=== PATIENT | male | born 1995 | race Caucasian/White ===

== ENCOUNTER 2018-07-07 20:41 | Inpatient (IN) | payer SELFPAY ==
[~2018-07-07] VITALS: Ht 190.5 cm; Wt 115.2 kg
[2018-07-07] MEDS ORDERED: DIPHENHYDRAMINE HCL INJ 50 MG/ML VIAL ONE (21:08)
[2018-07-07] MEDS ORDERED: SODIUM CHLORIDE 0.9% 1000ML 1,000 ML ONE (21:08)
[2018-07-07] MEDS ORDERED: SODIUM CHLORIDE 0.9% 1000ML 1,000 ML IV STA (21:11)
[2018-07-07] MEDS ORDERED: DIPHENHYDRAMINE HCL INJ 50 MG/ML VIAL IV ONE (21:15)
[2018-07-07] MEDS ORDERED: SODIUM CHLORIDE 0.9% 1000ML 1,000 ML IV ONE (21:15)
[2018-07-07 21:19] LABS: BASOPHILS % 0.3 % (0.0-1.0); EOSINOPHILS # (AUTO) 0.3 (0.0-0.4); EOSINOPHILS % 4.7 % (0.0-6.0); HEMATOCRIT 41.5 % (38.2-49.6); HEMOGLOBIN 14.7 g/dL (14.0-18.0); LYMPHOCYTES # (AUTO) 2.1 (1.0-3.2); LYMPHOCYTES % 31.4 % (18.0-39.1); MEAN CORPUSCULAR HEMOGLOBIN 32.5 pg (28-32); MEAN CORPUSCULAR HGB CONC 35.4 g/dL (31-35); MEAN CORPUSCULAR VOLUME 91.6 fL (81-99); MONOCYTES # (AUTO) 0.6 (0.2-0.8); MONOCYTES % 8.5 % (4.4-11.3); NEUTROPHILS # (AUTO) 3.6 (2.1-6.9); NEUTROPHILS % 54.9 % (38.7-80.0); PLATELET COUNT 204 x10e3/uL (140-360); RED BLOOD COUNT 4.53 x10e6/uL (4.3-5.7)
[2018-07-07 21:25] LABS: INR 0.95; PARTIAL THROMBOPLASTIN TIME 31.4 seconds (23.8-35.5); PROTHROMBIN TIME 13.5 seconds (11.9-14.5)
--- NOTE | 2018-07-07 21:32 | NUR ---
pt lethargic and unable to follow instructions. ordered to straight cath for ua. straight cath performed using sterile technique. catheter inserted s difficulty. small amount of blood return noted. catheter removed. md informed. lomeli catheter ordered. 16fr lomeli catheter inserted using sterile technique. catheter inserted s difficulty. valdez colored urine return c small clot noted on insertion. 100cc urine noted. urine noted returning to clear yellow at this time.
[2018-07-07 21:34] LABS: ALANINE AMINOTRANSFERASE 32 IU/L (0-55); ALBUMIN 3.7 g/dL (3.5-5.0); ALBUMIN/GLOBULIN RATIO 1.2 (0.8-2.0); ALKALINE PHOSPHATASE 107 IU/L (40-150); ANION GAP 12.3 mmol/L (8-16); BLOOD UREA NITROGEN 7 mg/dL (7-26); BUN/CREATININE RATIO 7 (6-25); CALCIUM 9.5 mg/dL (8.4-10.2); CARBON DIOXIDE 27 mmol/L (22-29); CHLORIDE 100 mmol/L (98-107); CREATINE KINASE 405 IU/L (30-200); CREATININE, SERUM 1.07 mg/dL (0.72-1.25); EST GLOMERULAR FILTRATION RATE > 60 ML/MIN (60-); GLUCOSE 116 mg/dL (74-118); MAGNESIUM 2.1 MG/DL (1.3-2.1); POTASSIUM 3.3 mmol/L (3.5-5.1); SODIUM 136 mmol/L (136-145)
[2018-07-07] MEDS ORDERED: BENZTROPINE MESYLATE 1 MG/ML ONE (21:40)
[2018-07-07 21:43] LABS: ACETAMINOPHEN < 3 ug/mL (10-30); SALICYLATE < 5.0 mg/dL (0-30)
[2018-07-07] MEDS ORDERED: BENZTROPINE MESYLATE 1 MG/ML IV ONE (21:45)
[2018-07-07] MEDS ORDERED: DIPHENHYDRAMINE50 M1 PO (21:46)
[2018-07-07] MEDS ORDERED: HALOPERIDOL1 MG PO (21:46)
[2018-07-07 21:53] LABS: AMPHETAMINES SCREEN,URINE NEGATIVE (NEGATIVE); PHENCYCLIDINE SCREEN,URINE NEGATIVE (NEGATIVE)
[2018-07-07 21:54] LABS: BENZODIAZEPINES SCREEN,URINE POSITIVE (NEGATIVE); CLARITY,URINE CLEAR (CLEAR); COLOR,URINE YELLOW (YELLOW); LEUKOCYTE ESTERASE ,URINE NEGATIVE (NEGATIVE); NITRITE,URINE NEGATIVE (NEGATIVE); PROTEIN,URINE DIPSTICK NEGATIVE (NEGATIVE)
[2018-07-07 21:55] LABS: BACTERIA,URINE FEW /HPF; BILIRUBIN,URINE NEGATIVE (NEGATIVE); EPITHELIAL CELLS,URINE FEW /LPF; KETONES,URINE NEGATIVE (NEGATIVE); RBC,URINE 21-50 /HPF (0-5); URINE UROBILINOGEN 0.2 mg/dL (0.2 - 1); WBC,URINE (MAN) 0-5 /HPF (0-5)
--- NOTE | 2018-07-07 22:09 | Diagnostic Imaging Report ---
EXAM: CHEST SINGLE (PORTABLE), AP 1 view INDICATION: Altered mental status COMPARISON: None FINDINGS: LINES/TUBES: None LUNGS: No consolidations or edema. PLEURA: No effusions or pneumothorax. HEART AND MEDIASTINUM: Normal size and contour. BONES AND SOFT TISSUES: No acute findings. IMPRESSION: No acute thoracic abnormality. Signed by: Dr. Amy Gross M.D. on 07/07/2018 10:06 PM
--- NOTE | 2018-07-07 22:18 | Diagnostic Imaging Report ---
EXAMINATION: Head CT without contrast. HISTORY:Altered mental status. COMPARISON:None. TECHNIQUE: Multidetector axial images were obtained from the foramen magnum to the vertex without contrast. The images were reconstructed using brain and bone algorithms. Thin section brain images were reformatted into coronal and sagittal planes. Dose modulation, iterative reconstruction, and/or weight based adjustment of the mA/kV was utilized to reduce the radiation dose to as low as reasonably achievable. Intravenous contrast: None IMAGE QUALITY: Suboptimal evaluation due to motion-related streak artifacts. FINDINGS: Skull/scalp: No lytic or blastic. lesions. No surgical changes. Parenchyma: No abnormal density. No acute hemorrhage, mass or acute major vascular territorial infarct. Arteries: No density suggestive of thrombosis. Dural sinuses: No abnormal density suggestive of thrombosis. Ventricles: No hydrocephalus or displacement. Extra-axial spaces: No abnormal density. Brain volume: Normal for age. Craniocervical junction: No mass, Chiari malformation, or basilar invagination. Sella: No mass. Paranasal/mastoid sinuses: Imaged portions unremarkable. IMPRESSION: Suboptimal evaluation due to motion artifact, despite the limitation no gross acute intracranial abnormality. Signed by: Dr. Yina Pérez M.D. on 07/07/2018 10:15 PM
[2018-07-08] VITALS (20 sets, daily range): BP systolic 15–150; BP diastolic 34–108
[2018-07-08] MEDS ORDERED: SODIUM CHLORIDE 0.9% 1000ML 1,000 ML IV SCH ×2 (00:45→09:00)
[2018-07-08] MEDS ORDERED: SODIUM CHLORIDE 0.9% 1000ML 1,000 ML ONE (00:46)
[2018-07-08] MEDS ORDERED: SODIUM CHLORIDE 0.9% 1000ML 1,000 ML IV ONE (01:00)
--- NOTE | 2018-07-08 02:15 | Diagnostic Imaging Report ---
EXAM: CT ABDOMEN AND PELVIS without IV CONTRAST INDICATION: Patient altered, hematuria after UA COMPARISON: None TECHNIQUE: The abdomen and pelvis were scanned using a multidetector helical scanner. Coronal and sagittal reformations were obtained. Dose modulation, iterative reconstruction, and/or weight based adjustment of the mA/kV was utilized to reduce the radiation dose to as low as reasonably achievable. Renal stone protocol performed. IV Contrast: None Oral Contrast: None CTDIvol has been reviewed. It is below the limits set by the Radiation Protocol Committee (RPC). FINDINGS: LOWER THORAX: No consolidations LIVER: No masses BILIARY: Normal gallbladder. No ductal dilation. SPLEEN: No masses PANCREAS: No masses ADRENALS: No nodules RIGHT KIDNEY: No nephroureterolithiasis or hydronephrosis. LEFT KIDNEY: No nephroureterolithiasis or hydronephrosis. GI TRACT: No wall thickening or obstruction. Normal appendix. VESSELS: Normal PERITONEUM/RETROPERITONEUM: No free air or fluid LYMPH NODES: No lymphadenopathy REPRODUCTIVE ORGANS: Normal BLADDER: Partially decompressed by Vallejo catheter. SOFT TISSUES: Normal BONES: No suspicious bone lesions. IMPRESSION: Normal CT of the abdomen and pelvis. Signed by: Dr. Amy Gross M.D. on 07/08/2018 2:11 AM
[2018-07-08] MEDS ORDERED: KCL 20MEQ/.9 SOD CHL 1,000 ML IV ONE (02:30)
[2018-07-08] MEDS ORDERED: ONDANSETRON HCL INJ 2 MG/ML VIAL IV PRN (02:30)
--- OUTSIDE RECORDS SUMMARY | 2018-07-08 02:37 | XMS REPORT ---
Author Author [facility] Address Unknown Phone Unavailable Care Team Providers Care Transport Technician Name Role Phone Allegra JEAN Unavailable Unavailable Problems This patient has no known problems. Allergies, Adverse Reactions, Alerts This patient has no known allergies or adverse reactions. Medications This patient has no known medications. Results Test Description Test Time Test Comments Text Results Atomic Results Result Comments CT ABDOMEN/PELVIS WO 2018-07-08 02:08:00 [place] [id number] Patient Name: RO ESTEBAN MR #: [id number] : 1995 Age/Sex: 23/M Req #: [id number] Adm Physician: Ordered by: MICHAEL JEAN MD Report #: [id number] Location: ER Room/Bed: Procedure: [id number] CT/CT ABDOMEN/PELVIS WO Exam Date: Exam Time: REPORT STATUS: Signed EXAM: CT ABDOMEN AND PELVIS without IV CONTRAST INDICATION: Patient altered, hematuria after UA COMPARISON: None TECHNIQUE: The abdomen and pelvis were scanned using a multidetector helical scanner. Coronal and sagittal reformations were obtained. Dose modulation, iterative reconstruction, and/or weight based adjustment of the mA/kV was utilized to reduce the radiation dose to as low as reasonably achievable. Renal stone protocol performed. IV Contrast: None Oral Contrast: None CTDIvol has been reviewed. It is below the limits set by the Radiation Protocol Committee (RPC). FINDINGS: LOWER THORAX: No consolidations LIVER: No masses BILIARY: Normal gallbladder. No ductal dilation. SPLEEN: No masses PANCREAS: No masses ADRENALS: No nodules RIGHT KIDNEY: No nephroureterolithiasis or hydronephrosis. LEFT KIDNEY: No nephroureterolithiasis or hydronephrosis. GI TRACT: No wall thickening or obstruction. Normal appendix. VESSELS: Normal PERITONEUM/RETROPERITONEUM: No free air or fluid LYMPH NODES: No lymphadenopathy REPRODUCTIVE ORGANS: Normal BLADDER: Partially decompressed by Vallejo catheter. SOFT TISSUES: Normal BONES: No suspicious bone lesions. IMPRESSION: Normal CT of the abdomen and pelvis. Signed by: Dr. Rachel Gross M.D. on 07/08/2018 2:11 AM Dictated By: RACHEL GROSS MD 0 Transcribed By: GALEN on 07/08/18210 COPY TO: MICHAEL JEAN MD CT BRAIN WO 2018-07-07 22:08:00 [place] [address] Patient Name: RO ESTEBAN MR #: [id number] : 1995 Age/Sex: 23/M Req #: [id number] Adm Physician: Ordered by: MICHAEL JEAN MD Report #: [id number] Location: ER Room/Bed: Procedure: [id number] CT/CT BRAIN WO Exam Date: 07/07/18 Exam Time: 2149 REPORT STATUS: Signed EXAMINATION: Head CT without contrast. HISTORY:Altered mental status. COMPARISON:None. TECHNIQUE: Multidetector axial images were obtained from the foramen magnum to the vertex without contrast. The images were reconstructed using brain and bone algorithms. Thin section brain images were reformatted into coronal and sagittal planes. Dose modulation, iterative reconstruction, and/or weight based adjustment of the mA/kV was utilized to reduce the radiation dose to as low as reasonably achievable. Intravenous contrast: None IMAGE QUALITY: Suboptimal evaluation due to motion-related streak artifacts. FINDINGS: Skull/s calp: No lytic or blastic. lesions. No surgical changes. Parenchyma: No abnormal density. No acute hemorrhage, mass or acute major vascular territorial infarct. Arteries: No density suggestive of thrombosis. Dural sinuses: No abnormal density suggestive of thrombosis. Ventricles: No hydrocephalus or displacement. Extra-axial spaces: No abnormal density. Brain volume: Normal for age. Craniocervical junction: No mass, Chiari malformation, or basilar invagination. Sella: No mass. Paranasal/mastoid sinuses: Imaged portions unremarkable. IMPRESSION: Suboptimal evaluation due to motion artifact, despite the limitation no gross acute intracranial abnormality. Signed by: Dr. Yina Pérez M.D. on 07/07/2018 10:15 PM Dictated By: YINA PÉREZ MD 14 Transcribed By: GALEN on 07/07/182214 COPY TO: MICHAEL JEAN MD CHEST SINGLE (PORTABLE) 2018-07-07 22:06:00 [place] [address] Patient Name: RO ESTEBAN MR #: [id number] : 1995 Age/Sex: 23/M Req #: [id number] Adm Physician: Ordered by: MICHAEL JEAN MD Report #: [id number] Location: ER Room/Bed: Procedure: [id number] DX/CHEST SINGLE (PORTABLE) Exam Date: 07/07/18 Exam Time: 2199 REPORT STATUS: Signed EXAM: CHEST SINGLE (PORTABLE), AP 1 view INDICATION: Altered mental status COMPARISON: None FINDINGS: LINES/TUBES: None LUNGS: No consolidations or edema. PLEURA: No effusions or pneumothorax. HEART AND MEDIASTINUM: Normal size and contour. BONES AND SOFT TISSUES: No acute findings. IMPRESSION: No acute thoracic abnormality. Signed by: Dr. Rachel Gross M.D. on 07/07/2018 10:06 PM Dictated By: RACHEL GROSS MD 05 Transcribed By: GALEN on 07/07/182205 COPY TO: MICHAEL JEAN MD
--- NOTE | 2018-07-08 07:00 | NUR ---
Bedside report from ANDREW Win. Patient right side lying; continual word salad, but ceases and answers simple questions appropriately, follows commands. Continual monitor to ensure safety.
[2018-07-08 08:03] LABS: CREATINE KINASE 249 IU/L (30-200)
--- NOTE | 2018-07-08 10:06 | NUR ---
Paged Dr Joyner; awaiting call back.
[2018-07-08] MEDS: RISPERIDONE 1 MG TAB PO SCH ×2 (11:45→21:39)
[2018-07-08] MEDS ORDERED: LORAZEPAM INJ 2 MG/ML VIAL IV PRN (11:45)
[2018-07-08] MEDS ORDERED: ZIPRASIDONE 20 MG VIAL IM PRN (11:45)
[2018-07-08 12:33] LABS: BILIRUBIN,URINE NEGATIVE (NEGATIVE); CLARITY,URINE SL CLOUDY (CLEAR); COLOR,URINE YELLOW (YELLOW); KETONES,URINE NEGATIVE (NEGATIVE); LEUKOCYTE ESTERASE ,URINE NEGATIVE (NEGATIVE); NITRITE,URINE NEGATIVE (NEGATIVE); PROTEIN,URINE DIPSTICK NEGATIVE (NEGATIVE); URINE UROBILINOGEN 0.2 mg/dL (0.2 - 1)
[2018-07-08 12:38] LABS: ANION GAP 14.1 mmol/L (8-16); BLOOD UREA NITROGEN 5 mg/dL (7-26); BUN/CREATININE RATIO 6 (6-25); CARBON DIOXIDE 19 mmol/L (22-29); CHLORIDE 109 mmol/L (98-107); CREATININE, SERUM 0.88 mg/dL (0.72-1.25); EST GLOMERULAR FILTRATION RATE > 60 ML/MIN (60-); GLUCOSE 93 mg/dL (74-118); POTASSIUM 4.1 mmol/L (3.5-5.1); SODIUM 138 mmol/L (136-145)
[2018-07-08 12:55] LABS: BACTERIA,URINE RARE /HPF; EPITHELIAL CELLS,URINE RARE /LPF; WBC,URINE (MAN) 0-5 /HPF (0-5)
[2018-07-08 13:13] LABS: CREATINE KINASE 231 IU/L (30-200)
--- NOTE | 2018-07-08 13:18 | History and Physical ---
The patient has no PCP. CHIEF COMPLAINT: Altered mental status and acute psychosis. HISTORY OF PRESENT ILLNESS: Mr. Zapata is a 23-year-old gentleman who has some psych history. Apparently approximately a year ago, the patient had an acute psychotic episode that occurred after smoking marijuana that was laced with Collins and PCP. That resolved, and the patient has been okay since then until recently. Two weeks ago, while the patient's family was in the middle of moving, he abruptly had another psychotic break where he was found running down the street yelling and screaming. The police picked him up and [facility]. He was bailed out by his mom the next day and taken to [facility], the [facility] [place]. They evaluated him and kept him for 48 hours, medicated him with benzodiazepine and released him. That was a couple of days ago. Patient has remained acutely psychotic with word salad verbiage, although he does occasionally answer direct questions appropriately. He is just babbling and mumbling constantly. The patient was diagnosed as bipolar while he was in [facility]. In reviewing his history with his family, certainly his behavior in the past would be consistent with bipolar disorder and at this time with a psychotic episode. REVIEW OF SYSTEMS: Unobtainable as the patient does not answer most questions. PAST MEDICAL HISTORY: Negative for diabetes or hypertension. He has had no surgery. Again, he has had a psych history, possibly bipolar diagnosis with a previous episode of acute psychosis. FAMILY HISTORY: His mother had seizures. Otherwise unremarkable. SOCIAL HISTORY: The patient is . Tajik is his primary language. He smokes marijuana, but he does not smoke cigarettes. He does not drink. He has used illegal drugs but has been generally independently functioning. PHYSICAL EXAMINATION PSYCHIATRIC: He is awake and alert. He is disoriented and confused, babbling speech that makes no sense, although, again, he does answer occasional questions when put directly. CONSTITUTIONAL: He has a normal body habitus. He is in no acute distress. VITAL SIGNS: Blood pressure 149/79. Pulse 53 and regular. Respiratory rate 16. O2 sat 100% on room air. Temperature 98.1. HEENT: Head is atraumatic. Eyes are anicteric with clear conjunctivae. Ears and nares are without erythema or discharge. Oropharynx is clear. NECK: Supple with no mass or thyromegaly. LYMPHATIC SYSTEM: He has no palpable cervical, axillary or inguinal adenopathy. CARDIOVASCULAR: His heart has regular rate and rhythm without murmur or extra heart sound. He is somewhat bradycardic but asymptomatic. He has no carotid bruit. He has no peripheral edema. He has palpable dorsal pedal pulses. RESPIRATORY: Lungs are clear to auscultation and percussion with normal respiratory effort. GASTROINTESTINAL: Abdomen is soft without organomegaly, masses or tenderness. He has normal bowel sounds present. CUTANEOUS: His skin is warm and dry to touch with no rash or skin breakdown. MUSCULOSKELETAL: His joints are in normal alignment without erythema or swelling. He has no calf tenderness. NEUROLOGIC: Exam is nonfocal other than the acute psychosis. He has no motor or sensory deficits. DIAGNOSTIC STUDIES: Chest x-ray shows no acute disease. CT scan of the abdomen and pelvis also no acute disease. CT scan of brain also no acute disease. His UDS is positive for benzodiazepines. His UA has 20 to 50 red cells; however, apparently the placement of the Vallejo catheter was somewhat traumatic. His urine appears clear now. Will be sending another UA. His troponin is negative x2. His chemistry profile initially with potassium of 3.3. Otherwise, the electrolytes are normal. CO2 is 27. Creatinine 1.07. BUN 7 for a normal GFR. Calcium 9.5. CBC shows a white count 6.5 with a normal differential; hemoglobin 14.7; hematocrit 41.5; platelet count 204,000. His transaminases, bilirubin and alk phos are all normal. His coags are normal. ASSESSMENT AND PLAN 1. Acute psychosis. The patient will be started on scheduled Risperdal 2 mg q.12 h. as well as p.r.n. IM Geodon and IV Ativan for psychosis and agitation. 2. Bipolar disorder currently with acute psychosis. Again, plan is as noted above. 3. For prophylaxis, the patient will be on Pepcid 20 b.i.d. a.c. Also for the psychosis, the MAT team has been called to evaluate the patient for inpatient psychiatric care. Job#: [id number]
--- NOTE | 2018-07-08 16:19 | NUR ---
MAT team repRebecca, completed assessment and patient transfer to [facility] pending, awaiting bed. Patient is on waiting list and MAT call center will contact [facility] once a bed is available.
[2018-07-08] MEDS: FAMOTIDINE 20 MG TAB PO SCH (17:15)
--- NOTE | 2018-07-08 19:00 | NUR ---
Bedside report received from Ciara Medellin RN. Pt received resting in bed with eyes closed, awakened easily to verbal command. OX3. Pt reports no pain or discomfort at this time. No signs of distress noted.
--- NOTE | 2018-07-08 23:00 | NUR ---
Reassessment completed. Pt following commands. No signs of distress noted. Pt reports no pain pain or discomfort.
[2018-07-09] VITALS (11 sets, daily range): BP systolic 107–152; BP diastolic 56–95
--- NOTE | 2018-07-09 04:00 | NUR ---
Tamia laborer concrete plant present and collecting AM lab specimens.
[2018-07-09 05:30] LABS: BASOPHILS % 0.5 % (0.0-1.0); EOSINOPHILS # (AUTO) 0.2 (0.0-0.4); EOSINOPHILS % 3.9 % (0.0-6.0); HEMATOCRIT 39.5 % (38.2-49.6); HEMOGLOBIN 13.6 g/dL (14.0-18.0); LYMPHOCYTES # (AUTO) 2.9 (1.0-3.2); LYMPHOCYTES % 47.4 % (18.0-39.1); MEAN CORPUSCULAR HEMOGLOBIN 31.9 pg (28-32); MEAN CORPUSCULAR HGB CONC 34.4 g/dL (31-35); MEAN CORPUSCULAR VOLUME 92.7 fL (81-99); MONOCYTES # (AUTO) 0.5 (0.2-0.8); MONOCYTES % 8.6 % (4.4-11.3); NEUTROPHILS # (AUTO) 2.4 (2.1-6.9); NEUTROPHILS % 39.4 % (38.7-80.0); PLATELET COUNT 180 x10e3/uL (140-360); RED BLOOD COUNT 4.26 x10e6/uL (4.3-5.7); RED CELL DISTRIBUTION WIDTH 12.4 % (11.7-14.4)
[2018-07-09 05:56] LABS: ALANINE AMINOTRANSFERASE 30 IU/L (0-55); ALBUMIN 3.4 g/dL (3.5-5.0); ALBUMIN/GLOBULIN RATIO 1.3 (0.8-2.0); ALKALINE PHOSPHATASE 93 IU/L (40-150); ANION GAP 13.8 mmol/L (8-16); BLOOD UREA NITROGEN 6 mg/dL (7-26); BUN/CREATININE RATIO 6 (6-25); CALCIUM 9.2 mg/dL (8.4-10.2); CARBON DIOXIDE 25 mmol/L (22-29); CHLORIDE 106 mmol/L (98-107); CREATININE, SERUM 1.01 mg/dL (0.72-1.25); EST GLOMERULAR FILTRATION RATE > 60 ML/MIN (60-); GLUCOSE 88 mg/dL (74-118); POTASSIUM 3.8 mmol/L (3.5-5.1); SODIUM 141 mmol/L (136-145)
[2018-07-09 06:10] LABS: ANION GAP 12.8 mmol/L (8-16); BLOOD UREA NITROGEN 6 mg/dL (7-26); BUN/CREATININE RATIO 6 (6-25); CALCIUM 9.1 mg/dL (8.4-10.2); CARBON DIOXIDE 25 mmol/L (22-29); CHLORIDE 107 mmol/L (98-107); EST GLOMERULAR FILTRATION RATE > 60 ML/MIN (60-); GLUCOSE 87 mg/dL (74-118); POTASSIUM 3.8 mmol/L (3.5-5.1); SODIUM 141 mmol/L (136-145)
[2018-07-09 06:38] LABS: FREE T4 (FREE THYROXINE) 1.02 ng/dL (0.9-1.8); THYROID STIMULATING HORMONE 2.498 uIU/mL (0.350-4.940)
[2018-07-09] MEDS: FAMOTIDINE 20 MG TAB PO SCH ×2 (07:50→18:05)
[2018-07-09] MEDS: RISPERIDONE 1 MG TAB PO SCH ×3 (08:24→21:00)
--- NOTE | 2018-07-09 09:00 | NUR ---
Patient up ambulating in room with steady gait; showered independently. To recliner, eating breakfast conversing with significant other.
--- NOTE | 2018-07-09 11:13 | NUR ---
Sierra Cassidy to bedside; orders rec'd.
--- NOTE | 2018-07-09 12:19 | NUR ---
Report called to ANDREW Trevino for room 213; baltazar when room is cleaned.
--- NOTE | 2018-07-09 13:38 | NUR ---
Nutrition Screen Note RD Recommendation for Physician: Continue diet as ordered Plan of Care: RD following, monitoring for adequacy and tolerance Nutrition reason for involvement: Nutrition Risk Trigger - MST Primary Diagnose(s):Altered mental status, psychosis Ht:75 in Wt:254.38lbs BMI:31.8 kg/m2 IBW:208lbs RD Assessment:(07/09/2018) Current Diet: Regular Malnutrition Evaluation (07/09/2018) The patient does not meet criteria for a specified degree of malnutrition at this time. Will re-evaluate at follow-up as appropriate. Diet Education Needs Assessment: Diet education not indicated. Diet Adequacy: Meeting calorie needs, Meeting protein needs, Meeting fluid needs Tolerance: Tolerating PO Nutrition Care Level: Sai Heller RD, LD, CNSC
--- NOTE | 2018-07-09 14:45 | NUR ---
RECEIVED PT TO RM AAXO3 NO DISTRESS NOTED, UPDATED ON POC VOICED UNDERSTANDING, DENIES PAIN AT THIS TIME, CALL LIGHT IN REACH IN WILL CONTINUE TO MONITOR.
--- NOTE | 2018-07-09 14:45 | NUR ---
Report called to ANDREW Mckeon for 113. secured entrance monitor in place and patient ambulated down [place] to new room. ANDREW Mckeon to bedside.
--- NOTE | 2018-07-09 19:45 | NUR ---
Received change of shift report from Am nurse. Walking rounds completed.
[2018-07-10] VITALS: BP 103/55
[2018-07-10 04:00] VITALS: BP 115/63
--- NOTE | 2018-07-10 05:00 | NUR ---
Patient resting quitly with no c/o pain or discomfort. Continue monitor.
[2018-07-10 06:16] LABS: BASOPHILS % 0.3 % (0.0-1.0); EOSINOPHILS # (AUTO) 0.2 (0.0-0.4); EOSINOPHILS % 3.6 % (0.0-6.0); HEMOGLOBIN 13.8 g/dL (14.0-18.0); LYMPHOCYTES # (AUTO) 2.4 (1.0-3.2); LYMPHOCYTES % 40.5 % (18.0-39.1); MEAN CORPUSCULAR HEMOGLOBIN 32.2 pg (28-32); MEAN CORPUSCULAR HGB CONC 35.4 g/dL (31-35); MEAN CORPUSCULAR VOLUME 91.1 fL (81-99); MONOCYTES # (AUTO) 0.5 (0.2-0.8); MONOCYTES % 7.8 % (4.4-11.3); NEUTROPHILS # (AUTO) 2.8 (2.1-6.9); NEUTROPHILS % 47.8 % (38.7-80.0); PLATELET COUNT 172 x10e3/uL (140-360); RED BLOOD COUNT 4.28 x10e6/uL (4.3-5.7); RED CELL DISTRIBUTION WIDTH 12.3 % (11.7-14.4)
[2018-07-10 06:33] LABS: ANION GAP 11.6 mmol/L (8-16); BLOOD UREA NITROGEN 9 mg/dL (7-26); BUN/CREATININE RATIO 9 (6-25); CALCIUM 8.9 mg/dL (8.4-10.2); CARBON DIOXIDE 25 mmol/L (22-29); CHLORIDE 104 mmol/L (98-107); CREATININE, SERUM 0.97 mg/dL (0.72-1.25); EST GLOMERULAR FILTRATION RATE > 60 ML/MIN (60-); GLUCOSE 86 mg/dL (74-118); MAGNESIUM 2.2 MG/DL (1.3-2.1); POTASSIUM 3.6 mmol/L (3.5-5.1); SODIUM 137 mmol/L (136-145)
[2018-07-10 08:13] VITALS: BP 135/71
[2018-07-10] MEDS ORDERED: RISPERDAL1 MG PO (08:20)
[2018-07-10] MEDS ORDERED: VITAMIN B-121000 MCG PO (08:20)
[2018-07-10] MEDS ORDERED: CYANOCOBALAMIN 1,000 MCG TAB PO SCH (09:00)
[2018-07-10] MEDS ORDERED: ATIVAN1 MG PO (09:55)
[2018-07-10 11:10] VITALS: BP 135/71
--- NOTE | 2018-07-10 11:10 | NUR ---
ASSESSMENT COMPLETE NO DISTRESS NOTED,UPDATED ON POC VOICED UNDERSTANDING, DENIES PAIN AT THIS TIME, L AC 20G SL NO OTHER CO VOICED CALL LIGHT IN REACH WILL CONTINUE TO MONITOR
[2018-07-10] MEDS: FAMOTIDINE 20 MG TAB PO SCH (11:32)
[2018-07-10] MEDS: RISPERIDONE 1 MG TAB PO SCH (11:32)
--- NOTE | 2018-07-10 22:01 | Discharge Summary ---
ADMISSION DIAGNOSES 1. Acute psychosis. 2. Bipolar disorder. DISCHARGE DIAGNOSES 1. Acute psychosis. 2. Bipolar disorder. 3. B12 deficiency. HISTORY: Patient has a history of acute psychosis with possible bipolar diagnosis. SURGICAL HISTORY: Unremarkable. FAMILY HISTORY: Patient's mom had seizures, otherwise unremarkable. SOCIAL HISTORY: Patient admits to smoking marijuana, but does not smoke cigarettes. HOSPITAL COURSE: A 23-year-old male admits with some psych history. Apparently about a year ago, the patient had acute psychotic episode that occurred after smoking marijuana that was laced with Collins and PCP. That resolved and the patient has been okay since until recently. Two weeks ago while the patient's family was in the middle of moving, he abruptly had another psychiatric break where he was down running around the street, yelling and screaming. The police picked him up and took him to [facility] for disturbing the peace. He was bailed out of [facility] by his mom the next day and taking to [facility], a [facility] [place]. They evaluated him and kept him for 48 hours, medicated him with benzo and released him. This was a couple days prior to admission. Patient has remained acutely psychotic with word salad verbiage, although he does occasionally answer direct questions. He just mumbles constantly. The patient was diagnosed with bipolar disorder while he was in [facility]. On admission, patient was started on Risperdal 2 mg q. 12 as well as p.r.n. Ativan and Geodon. The patient tolerated the medicine well. MAT team was called to evaluate the patient for inpatient psych care. After 2 days of the Risperdal, the patient is no longer a danger to himself or others. He will be discharged home with Risperdal 2 mg q. 12 plus Ativan 1 mg q.h.s. p.r.n. sleep. He was instructed to follow up very closely with psych doctor. He says his mom has some access to psych doctors. He says he has a child due next week, so he will not go to inpatient psych facility at this time. Vital signs stable. Patient afebrile. Patient understands discharge instruction and agrees to plan. Dictated by: Sierra Cassidy NP Job#: [id number] ISAAC
== END 2018-07-10 11:28 | disposition home or self-care (01) | DRG 885 ==
LOC: ER 20:41 → ERHOLD 07-08 02:22 → ICU 07-08 03:09 → MED/SURG 07-09 15:24
PROVIDERS: ADMIT Internal Medicine; ATTEND Internal Medicine
DX: F31.64 Bipolar disorder, current episode mixed, severe, with psychotic features (principal); F13.951 Sedative, hypnotic or anxiolytic use, unspecified with sedative, hypnotic or anxiolytic-induced psychotic disorder with hallucinations; F17.210 Nicotine dependence, cigarettes, uncomplicated; E53.8 Deficiency of other specified B group vitamins
CPT/HCPCS: 36415; 51700; 70450; 71045; 74176; 80048; 80053; 80307; 80320; 80329; 81001; 82550; 82553; 82607; 83735; 84439; 84443; 84484; 85025; 85610; 85730; 93005; 96374; 99285; J0515; J1200; J7030